=== PATIENT | male | born 1955 | race Caucasian/White ===

== ENCOUNTER 2019-09-07 08:44 | Day surgery (SDC) | payer MEDICARE, BC ==
[2019-09-02 15:35] LABS: BASOPHILS # (AUTO) 0.1 X10'3 (0-0.2); BASOPHILS % (AUTO) 0.8 % (0-1); EOSINOPHILS # (AUTO) 0.5 X10'3 (0-0.9); EOSINOPHILS % (AUTO) 4.9 % (0-6); LYMPHOCYTES # (AUTO) 2.6 X10'3 (1.1-4.8); LYMPHOCYTES % (AUTO) 27.7 % (21-51); MEAN CORPUSCULAR HEMOGLOBIN 32.8 PG (27.0-31.0); MEAN CORPUSCULAR HGB CONC 35.3 g/dL (33.0-36.5); MEAN CORPUSCULAR VOLUME 92.8 FL (78-98); MEAN PLATELET VOLUME 7.4 FL (7.4-10.4); MONOCYTES # (AUTO) 0.8 X10'3 (0-0.9); MONOCYTES % (AUTO) 8.1 % (2-12); NEUTROPHILS # (AUTO) 5.5 X10'3 (1.8-7.7); NEUTROPHILS % (AUTO) 58.5 % (42-75); PRE OP HEMATOCRIT 47.1 % (42.0-52.0); PRE OP HEMOGLOBIN 16.6 g/dL (14.0-17.9); PRE OP PLATELET COUNT 249 X10'3 (140-440); RED BLOOD COUNT 5.07 X10'6 (4.70-6.10); RED CELL DISTRIBUTION WIDTH 13.6 % (11.5-14.5)
[2019-09-02 15:46] LABS: ALBUMIN 3.8 G/DL (3.4-5.0); ALKALINE PHOSPHATASE 88 IU/L (46-116); BLOOD UREA NITROGEN 16 MG/DL (7-18); BUN/CREATININE RATIO 16.5 (5.4-32.0); CALCIUM 9.4 MG/DL (8.5-10.1); CHLORIDE 101 MMOL/L (99-107); CREATININE 0.97 MG/DL (0.60-1.10); PRE OP ALT 55 U/L (30-65); PRE OP ANION GAP 6 (8-16); PRE OP BILIRUB, TOTAL 0.8 MG/DL (0.0-1.0); PRE OP GLUCOSE 185 MG/DL (70-104); PRE OP SODIUM 137 MMOL/L (135-145); TOTAL CARBON DIOXIDE 30.3 MMOL/L (24-32); TOTAL PROTEIN 7.8 G/DL (6.4-8.2); eGFR 77 ML/MIN
[2019-09-02 16:10] LABS: PRE OP AST 28 U/L (10-37); PRE OP POTASSIUM 4.3 MMOL/L (3.4-5.1)
[2019-09-02 17:59] LABS: HEMOGLOBIN A1C 5.8 % (4.5-6.2)
[~2019-09-07] VITALS: Ht 175.3 cm; Wt 142.1 kg
[2019-09-07] VITALS (8 sets, daily range): BP systolic 126–143; BP diastolic 84–99
[~2019-09-07 08:44] MED LIST: ASPI-611 PO; ATOR-2 PO; DOCUMENT DATE & TIME OF BETA-BLOCKER PO ONE; FISH12002 PO; FLAX100032 PO; LEVO75TA7 PO; METO50TA17 PO; TRIA1TAB3 PO; ceFAZolin 1GM/D5W- ADD-VANTAGE 50 ML IV ONE; cefazolin/dext.iso 2gm/50ml 50 ML IV ONE; famotidine 20mg tablet PO ONE; meperidine/PF 25mg/ml syringe IV PRN; morphine 4 MG/ML inj SYRINge IV PRN; ondansetron/PF 4mg/2ml inj IV PRN; proCHLORperazine 10 MG/2 ml inj IV PRN; ringers solution, lacted 1,000 ML IV SCH
[2019-09-07] MEDS ORDERED: sevoflurane 250ml liquid IH ONE (09:28)
[2019-09-07] MEDS ORDERED: dexamethasone sod phosphate 10mg/ml inj ONE (09:28)
[2019-09-07] MEDS ORDERED: fentaNYL/PF 50MCG/1 ML 2ML syringe ONE (09:40)
[2019-09-07] MEDS ORDERED: midazolam 2 mg/2 ml injection ONE (09:40)
[2019-09-07] MEDS ORDERED: rocuronium 10mg/ml inj IV ONE (09:41)
[2019-09-07] MEDS ORDERED: propofol inj 20 ML IV ONE (09:50)
[2019-09-07] MEDS ORDERED: LIDOcaine 2% (20mg/ml) 5ml vial ONE (09:50)
[2019-09-07] MEDS ORDERED: ondansetron/PF 4mg/2ml inj ONE (09:52)
[2019-09-07] MEDS ORDERED: LIDOcaine 1% 30ml preserv. free vial ONE (09:58)
[2019-09-07] MEDS ORDERED: ketorolac trometh. 30mg/ml inj. ONE (09:58)
[2019-09-07] MEDS ORDERED: BUPIVAcaine/PF 2.5 mg/ml (0.25%) 30ml vial ONE (09:58)
[2019-09-07] MEDS ORDERED: ROPIVAcaine 0.5% (5mg/ml) 30ml vial ONE (09:58)
[2019-09-07] MEDS ORDERED: acetaminophen 1,000mg/100ml IV 100 ML IV ONE (11:29)
--- NOTE | 2019-09-07 11:45 | NUR ---
Received from OR via [facility], accompanied by Anesthesiologist DR. PANTOJA and report given by Anesthesiolgist. PT ARRIVED AWAKE. C/O 03/03 PAIN TO ABD, MEDICATED. O2 VIA MASK AT 10L IN PLACE. DRESSING TO BAD CDI, ABD BINDER IN PLACE. HUFF WITH GOOD CSM. PULSES AND SHOT PACKER WNL.
[2019-09-07] MEDS ORDERED: oxyCODONE/APAP 10/325mg tablet PO PRN ×2 (11:50)
--- NOTE | 2019-09-07 12:45 | NUR ---
PT DC READY. IV DC'D. DC INSTR READ TO PT AND FAMILY WITH ALL QUESTIONS ANSWERED. VSS. ASSISTED PT TO DRESS. DC TO POV VIA WC FOR DC HOME DRIVING
== END 2019-09-07 12:45 | disposition home or self-care (01) ==
LOC: PAS 08:44
PROVIDERS: ATTEND Surgery
DX: K43.0 Incisional hernia with obstruction, without gangrene (principal); K66.0 Peritoneal adhesions (postprocedural) (postinfection); I10 Essential (primary) hypertension; E03.9 Hypothyroidism, unspecified; E78.5 Hyperlipidemia, unspecified; Z95.5 Presence of coronary angioplasty implant and graft; Z96.619 Presence of unspecified artificial shoulder joint; Z96.659 Presence of unspecified artificial knee joint; Z96.649 Presence of unspecified artificial hip joint; Z79.899 Other long term (current) drug therapy; Z82.49 Family history of ischemic heart disease and other diseases of the circulatory system; Z82.61 Family history of arthritis
CPT/HCPCS: 36415; 49655; 64488; 80053; 82948; 83036; 85025; 93005; C1781; J0131; J0690; J1885; J2001; J2175; J2250; J2405; J2704; J3010; J3490; J7120; A4215; A4618; J1100; J2795

== ENCOUNTER 2022-02-27 07:04 | Day surgery (SDC) | payer MEDICARE, BC ==
[2022-02-26 15:09] LABS: BASOPHILS # (AUTO) 0.1 X10'3 (0-0.2); BASOPHILS % (AUTO) 0.7 % (0-1); EOSINOPHILS # (AUTO) 0.4 X10'3 (0-0.9); EOSINOPHILS % (AUTO) 3.6 % (0-6); HEMATOCRIT 48.6 % (42.0-52.0); HEMOGLOBIN 17.1 g/dl (14.0-17.9); LYMPHOCYTES # (AUTO) 3.1 X10'3 (1.1-4.8); LYMPHOCYTES % (AUTO) 29.4 % (21-51); MEAN CORPUSCULAR HEMOGLOBIN 31.9 PG (27.0-31.0); MEAN CORPUSCULAR HGB CONC 35.1 g/dL (33.0-36.5); MEAN CORPUSCULAR VOLUME 90.8 FL (78-98); MEAN PLATELET VOLUME 7.4 FL (7.4-10.4); MONOCYTES # (AUTO) 1.2 X10'3 (0-0.9); MONOCYTES % (AUTO) 11.2 % (2-12); NEUTROPHILS # (AUTO) 5.8 X10'3 (1.8-7.7); NEUTROPHILS % (AUTO) 55.1 % (42-75); PLATELET COUNT 270 X10'3 (140-440); RED BLOOD COUNT 5.35 X10'6 (4.70-6.10); RED CELL DISTRIBUTION WIDTH 13.2 % (11.5-14.5); WHITE BLOOD COUNT 10.5 X10'3 (4.5-11.0)
[2022-02-26 15:23] LABS: ALBUMIN 3.9 G/DL (3.4-5.0); ANION GAP 9 (8-16); BLOOD UREA NITROGEN 15 MG/DL (7-18); BUN/CREATININE RATIO 20.8 (5.4-32.0); CALCIUM 9.4 MG/DL (8.5-10.1); CHLORIDE 104 MMOL/L (99-107); CREATININE 0.72 MG/DL (0.60-1.10); GLUCOSE 98 MG/DL (70-104); POTASSIUM 3.8 MMOL/L (3.5-5.1); SODIUM 139 MMOL/L (135-145); TOTAL CARBON DIOXIDE 26.2 MMOL/L (24-32); eGFR > 90 ML/MIN
[2022-02-26 15:26] LABS: APTT 30 SECONDS (22-32)
[2022-02-27] VITALS (9 sets, daily range): BP systolic 126–181; BP diastolic 79–107
[~2022-02-27] VITALS: Ht 175.3 cm; Wt 145.6 kg
[~2022-02-27 07:04] MED LIST changes: -DOCUMENT DATE & TIME OF BETA-BLOCKER PO ONE; -ceFAZolin 1GM/D5W- ADD-VANTAGE 50 ML IV ONE; -cefazolin/dext.iso 2gm/50ml 50 ML IV ONE; -famotidine 20mg tablet PO ONE; -meperidine/PF 25mg/ml syringe IV PRN; -morphine 4 MG/ML inj SYRINge IV PRN; -ondansetron/PF 4mg/2ml inj IV PRN; -proCHLORperazine 10 MG/2 ml inj IV PRN; -ringers solution, lacted 1,000 ML IV SCH
[2022-02-27] MEDS ORDERED: ceFAZolin inj. 3,000 MG in normal saline 100ml IV soln 100 ML IV ONE (07:25)
[2022-02-27] MEDS ORDERED: normal saline 1000ml 1,000 ML IV SCH (07:25)
[2022-02-27] MEDS ORDERED: midazolam 1 mg/ML 2ml injection ONE ×2 (07:40→08:58)
[2022-02-27] MEDS ORDERED: fentaNYL/PF 50MCG/1 ML 2ML syringe ONE (07:41)
[2022-02-27] MEDS ORDERED: ceFAZolin 1000mg inj ONE (07:41)
[2022-02-27] MEDS ORDERED: LIDOcaine 1% W/epiNEPHrine 1:100,000 20ml vial ONE ×2 (08:29→09:00)
[2022-02-27] MEDS ORDERED: iohexol 350 MG/ML 50ML vial IV ONE (08:50)
[2022-02-27] MEDS ORDERED: metoprolol tartrate 1mg/ml inj IV ONE (09:17)
[2022-02-27] MEDS ORDERED: HYDROcodone/acetaminophen 10/325mg tab PO PRN (10:25)
[2022-02-27] MEDS ORDERED: HYDROcodone/acetaminophen 5mg/325mg tablet PO PRN (10:25)
[2022-02-27] MEDS ORDERED: metoprolol tartrate 50mg tablet PO SCH (10:26)
[2022-02-27] MEDS ORDERED: vancomycin/NS 1 GM ADD-VANTAGE 250 ML X 1 DOSE IV ONE (10:30)
== END 2022-02-27 15:00 | disposition home or self-care (01) ==
LOC: SSTAY O 07:04
PROVIDERS: ATTEND Internal Medicine Cardiovascular Disease
DX: I49.5 Sick sinus syndrome (principal); I25.10 Atherosclerotic heart disease of native coronary artery without angina pectoris; I10 Essential (primary) hypertension; E03.9 Hypothyroidism, unspecified; E66.3 Overweight; Z68.41 Body mass index [BMI] 40.0-44.9, adult; E78.49 Other hyperlipidemia; G47.30 Sleep apnea, unspecified; Z95.5 Presence of coronary angioplasty implant and graft; Z79.01 Long term (current) use of anticoagulants; Z79.899 Other long term (current) drug therapy; Z79.82 Long term (current) use of aspirin; Z96.652 Presence of left artificial knee joint; Z96.619 Presence of unspecified artificial shoulder joint; Z90.49 Acquired absence of other specified parts of digestive tract; Z80.9 Family history of malignant neoplasm, unspecified; Z82.49 Family history of ischemic heart disease and other diseases of the circulatory system
CPT/HCPCS: 33208; 36415; 71046; 80048; 85025; 85610; 85730; 93005; 99152; 99153; C1785; C1894; C1898; J0690; J2250; J3010; J3370; J3490; J7030; A4565; A4620; A6258; A6449; Q9967